=== PATIENT | male | born 1950 | race Caucasian/White ===

== ENCOUNTER 2020-11-25 10:33 | Outpatient (CLI) | payer OTHER, SELFPAY ==
--- NOTE | ~2020-11-25 | XR_ITS ---
EXAMINATION: XR foot RT standing 2V EXAM DATE: 11/25/2020 11:10 INDICATION: M05.79 - Rheumatoid arthritis with rheumatoid factor of multiple sites without organ or s ystems involvement . TECHNIQUE: Frontal and lateral projections of the right foot standing. Correlation is made to contra lateral foot same date. FINDINGS: There is moderate right pes planus. Calcaneus has small posterior and inferior spurs. Ther e is moderate polyarticular right midfoot primary osteoarthritis. There are no acute fractures or dis locations identified. There is no subcutaneous gas. The soft tissue is unremarkable. There are no radiopaque foreign bodies. IMPRESSION: 1. Right mid foot moderate polyarticular osteoarthritis. 2. Small calcaneal spurs. 3. Pes planus. 4. No erosions. Reviewed, dictated and finalized at location A. PERSON
--- NOTE | ~2020-11-25 | XR_ITS ---
EXAMINATION: XR foot LT standing 2V EXAM DATE: 11/25/2020 11:10 INDICATION: M05.79 - Rheumatoid arthritis with rheumatoid factor of multiple sites without organ or s ystems involvement . TECHNIQUE: Frontal and lateral projections of the left foot standing. There is no prior study for c omparison. FINDINGS: Left calcaneal small posterior and inferior spurs. There is moderate pes planus. There are no bony erosions identified. There is mild to moderate polyarticular midfoot primary osteoarthritis. There are no acute fractures or dislocations identified. There is no subcutaneous gas. The soft ti ssue is unremarkable. There are no radiopaque foreign bodies. IMPRESSION: 1. Mild to moderate left foot polyarticular osteoarthritis. 2. Small calcaneal spurs. 3. Pes planus. 4. No erosions. Reviewed, dictated and finalized at location A. NEERING COORDINATOR
--- NOTE | ~2020-11-25 | XR_ITS ---
EXAMINATION: HAND-MICHAEL ARTHRITIS 3+VIEWS DATE: 11/25/2020 11:10 INDICATION: Unspecified osteoarthritis at unspecified site the bilateral hands. TECHNIQUE: Posteroanterior, lateral, and oblique views of the left and of the right hands as well as a ballcatchers view of both hands were obtained. COMPARISON: None. FINDINGS: Bone alignment is normal. No fracture. Polyarticular osteoarthritis in the bilateral hands and wrists characterized by nonuniform joint space narrowing with marginal osteophytes. This is severe at the b ilateral first carpal metacarpal joints where there are also associated subarticular cystic changes. Moderate severity osteoarthritis at the left second and third and right third and fourth metacarpopha langeal joints and at several of the bilateral distal interphalangeal joints. Mild osteoarthritis at the bilateral wrist, triscaphe and remaining metacarpophalangeal and interphalangeal joints. There ar e several scattered ossicles at the peripheral aspects of a few bilateral metacarpophalangeal and int erphalangeal joints which could represent either degenerative loose bodies or heterotopic ossificatio n along the collateral ligaments. Atherosclerotic calcifications along the bilateral radial and ulnar arteries. IMPRESSION: 1. Polyarticular osteoarthritis at the bilateral hands and wrists, severe at the first carpal metacar pal joints and mild to moderate severity at numerous additional joints. Reviewed, dictated and finalized at location B. MACIST ASSISTANT IMPRESSION: 1. Polyarticular osteoarthritis at the bilateral hands and wrists, severe at th e first carpal metacarpal joints and mild to moderate severity at numerous karl tional joints.
[2020-11-25 11:11] LABS: Hemoglobin 10.5 g/dL (14.0-18.0); Mean Corpuscular HGB Conc 30.9 g/dl (32-36); Mean Corpuscular Hemoglobin 29.7 pg (26-34); Mean Corpuscular Volume 96.3 fl (80-100); Mean Platelet Volume 9.9 fl (7.4-10.4); Platelet Count Result 290 k/mm3 (150-375); Red Blood Count 3.53 M/mm3 (4.6-6.20); Red Cell Distribution Width 17.6 % (11.5-14.5); White Blood Count 4.9 K/mm3 (4.5-10.0)
[2020-11-25 11:23] LABS: Alanine Aminotransferase 18 U/L (4-50); Albumin Level 4.2 g/dL (3.5-5.1); Alkaline Phosphatase 88 U/L (38-126); Anion Gap 9 mmol/L (8-16); Aspartate Amino Transferase 28 U/L (17-59); Bilirubin,Total 0.4 mg/dL (0.2-1.3); Blood Urea Nitrogen 21 mg/dL (9-20); CRP < 0.5 mg/dL (<1.0); Calcium 9.8 mg/dL (8.4-10.2); Carbon Dioxide 26 mmol/L (22-30); Chloride 103 mmol/L (98-107); Estimated Glomerular Filt Rate > 60; Glucose 218 mg/dL (75-110); Potassium 4.5 mmol/L (3.4-5.0); Sodium 138 mmol/L (137-145)
[2020-11-25 12:06] LABS: Erythrocyte Sedimentation Rate 51 mm/hr (0-20)
[2020-11-25 12:11] LABS: Hepatitis B Surface Antigen Negative (Negative)
[2020-11-25 12:11] LABS: Add Urine Microscopic? NO; Appearance Urine Clear (Clear); Bilirubin Urine Negative (Negative); Blood Urine Negative (Negative); Color Urine Yellow (Yellow); Glucose Urine UA Negative (Negative); Ketones Urine Negative (Negative); Leukocyte Esterase Ur Negative LEU/UL (Negative); Nitrate Urine Negative (Negative); Protein Urine Negative (Negative); Specific Grav Ur 1.018 (1.001-1.035); Urobilinogen Urine Negative mg/dL (<2.0)
[2020-11-25 12:28] LABS: Hepatitis B Surface Anti Res Negative; Hepatitis C Virus Antibody Negative (Negative)
[2020-11-27 21:35] LABS: Quantiferon TB Plus, 1T NEGATIVE (NEGATIVE); TB1-NIL <0.00 IU/mL; TB2-NIL <0.00 IU/mL
== END 2020-11-25 10:34 | disposition home or self-care (01) ==
PROVIDERS: PCP Internal Medicine; Visit Provider Internal Medicine
DX: Z11.59 Encounter for screening for other viral diseases (principal); Z51.81 Encounter for therapeutic drug level monitoring; Z79.899 Other long term (current) drug therapy; M05.79 Rheumatoid arthritis with rheumatoid factor of multiple sites without organ or systems involvement; M19.042 Primary osteoarthritis, left hand; M19.041 Primary osteoarthritis, right hand; M19.032 Primary osteoarthritis, left wrist; M19.031 Primary osteoarthritis, right wrist
CPT/HCPCS: 36415; 73130; 73620; 80053; 81003; 85027; 85652; 86140; 86480; 86706; 86803; 87340

== ENCOUNTER 2021-02-05 15:41 | Outpatient (CLI) | payer OTHER, SELFPAY ==
[2021-02-05 16:10] LABS: Hematocrit 31.5 % (42.0-52.0); Hemoglobin 9.7 g/dL (14.0-18.0); Mean Corpuscular HGB Conc 30.8 g/dl (32-36); Mean Corpuscular Hemoglobin 27.6 pg (26-34); Mean Corpuscular Volume 89.7 fl (80-100); Mean Platelet Volume 10.5 fl (7.4-10.4); Platelet Count Result 267 k/mm3 (150-375); Red Blood Count 3.51 M/mm3 (4.6-6.20); Red Cell Distribution Width 18.2 % (11.5-14.5); White Blood Count 5.2 K/mm3 (4.5-10.0)
[2021-02-05 16:22] LABS: Rheumatoid Factor < 8.6 IU/ML (<12)
[2021-02-05 16:24] LABS: Alanine Aminotransferase 22 U/L (4-50); Albumin Level 3.8 g/dL (3.5-5.1); Alkaline Phosphatase 82 U/L (38-126); Anion Gap 7 mmol/L (8-16); Aspartate Amino Transferase 41 U/L (17-59); Bilirubin,Total 0.4 mg/dL (0.2-1.3); Blood Urea Nitrogen 20 mg/dL (9-20); CRP 0.6 mg/dL (<1.0); Calcium 9.7 mg/dL (8.4-10.2); Carbon Dioxide 26 mmol/L (22-30); Chloride 104 mmol/L (98-107); Estimated Glomerular Filt Rate > 60; Glucose 273 mg/dL (75-110); Potassium 4.1 mmol/L (3.4-5.0); Sodium 137 mmol/L (137-145)
[2021-02-05 17:04] LABS: Erythrocyte Sedimentation Rate 57 mm/hr (0-20)
[2021-02-09 14:26] LABS: Anti Cyclic Citrullinated Pept >250 Units (<20)
== END 2021-02-05 15:42 | disposition home or self-care (01) ==
PROVIDERS: PCP Internal Medicine; Visit Provider Internal Medicine
DX: M19.90 Unspecified osteoarthritis, unspecified site (principal); M05.79 Rheumatoid arthritis with rheumatoid factor of multiple sites without organ or systems involvement
CPT/HCPCS: 36415; 80053; 85027; 85652; 86038; 86039; 86140; 86200; 86430

== ENCOUNTER 2021-04-16 00:57 | Day surgery (SDC) | payer OTHER, SELFPAY ==
[2021-04-02 14:02] VITALS: BMI 36.5
[2021-04-16 09:28] VITALS: BP 150/70; PULSE 108; RESP 18; TEMP 36.3; O2SAT 96
[2021-04-16] MEDS: LACTATED RINGERS 1,000 ML 150 ML IV CONT (09:45)
--- NOTE | 2021-04-16 09:48 | WPDANESEPPF ---
Anes - Initial Pre Proc Eval Procedure: Operation Date: 04/16/21 10:45 Proposed Procedures p Esophagogastroduodenoscopy & Colonoscopy - Desmond Patrick MD Date/Time: 04/16/21 09:48 Surgeon: Desmond Patrick MD Pre Op Diagnosis: Iron Deficiency Anemia Patient Data Age: 70 Gender: M Height: 1.75 m Weight: 108.6 kg Last Vital Signs Temp 36.3 C L 04/16/21 09:28 Pulse 108 H 04/16/21 09:28 Resp 18 04/16/21 09:28 BP 150/70 H 04/16/21 09:28 Pulse Ox 96 04/16/21 09:28 Allergies Allergy/AdvReac Type Severity Reaction Status Date / Time indomethacin Allergy Mild Rash, Verified 04/16/21 09:26 Fainting Home Medications Medication Instructions Recorded Confirmed Type alfuzosin 10 mg tablet,extended 10 mg PO DAILY 09/02/20 04/16/21 History release 24 hr allopurinol 300 mg tablet 300 mg PO DAILY 09/02/20 04/16/21 History aspirin 325 mg tablet 325 mg PO DAILY 09/02/20 04/16/21 History atorvastatin 40 mg tablet 40 mg PO DAILY 09/02/20 04/16/21 History cinnamon bark 500 mg capsule 500 mg PO DAILY 09/02/20 04/16/21 History dutasteride 0.5 mg capsule 0.5 mg PO DAILY 09/02/20 04/16/21 History ezetimibe 10 mg-simvastatin 20 mg 1 tablet PO DAILY 09/02/20 04/16/21 History tablet garlic 1,000 mg capsule 1,000 mg PO DAILY 09/02/20 04/16/21 History glimepiride 4 mg tablet 4 mg PO QAM 09/02/20 04/16/21 History lisinopril 10 mg tablet 10 mg PO DAILY 09/02/20 04/16/21 History metformin 1,000 mg tablet 1,000 mg PO BID 09/02/20 04/16/21 History omega-3 fatty acids 1,000 mg 1,000 mg PO DAILY 09/02/20 04/16/21 History capsule pioglitazone 30 mg tablet 30 mg PO DAILY 09/02/20 04/16/21 History dutasteride 0.5 mg capsule 0.5 mg PO DAILY 10/22/20 04/16/21 History folic acid 1 mg tablet 1 mg PO DAILY #90 tablet 10/22/20 04/16/21 Rx celecoxib 200 mg capsule 200 mg PO DAILY #90 cap 12/15/20 04/16/21 Rx hydroxychloroquine 200 mg tablet 400 mg PO DAILY #60 tablet 02/13/21 04/16/21 Rx prednisone 1 mg tablet 5 mg PO DAILY #30 tablet 02/13/21 04/16/21 Rx leflunomide [Arava] 20 mg PO DAILY 04/02/21 04/16/21 History Patient hx anesthesia problems: none Family hx anesthesia problems: none [facility] Past Medical History Medical History Carpal tunnel syndrome of left wrist Carpal tunnel syndrome of right wrist Colonoscopy planned Diabetes Hypertension Lumbosacral spondylosis without myelopathy Obesity (BMI 30-39.9) Rheumatoid arthritis Rheumatoid arthritis with rheumatoid factor of multiple sites without organ or systems involvement Rotator cuff arthropathy of left shoulder Rotator cuff arthropathy of right shoulder Stroke Surgical History Surgical History H/O arthroscopy H/O cystoscopy History of back surgery History of lithotripsy Family History Family History Mother Diabetes mellitus Rheumatoid arthritis Father Heart attack Sibling Diabetes mellitus Brother Sibling Cancer sister Social History Social History Smoking status: Former smoker Tobacco type: cigarettes Alcohol intake: current Drinks per week: 1 Alcohol use details: socially Substance use: never Substance use type: does not use Living arrangements: with family Gender identity (if verbalized by the patient): Male Anes - Eval Final PreProcedure Day of Procedure 04/16/21 09:48 Patient weight: obese Heart: regular rate and rhythm Lungs: clear to auscultation Airway: Mallampati scale class II Neurological: alert and oriented Last oral intake: >/= 8 hours ASA classification: III Emergent: no Anesthetic plan: proceed Anesthesia type and monitoring: general GIVS and standard monitoring Informed Consent: The patient's anesthetic plan and its attendant risks and benefits were di
[2021-04-16 09:49] LABS: Glucose Point of Care 100 mg/dl (65-105)
--- NOTE | 2021-04-16 09:54 | WPDGICN ---
Assessment and Plan Assessment and plan (1) Rheumatoid arthritis with rheumatoid factor of multiple sites without organ or systems involvement: Code(s): M05.79 - Rheumatoid arthritis with rheumatoid factor of multiple sites without organ or systems involvement Status: Acute (2) Anemia: Code(s): D64.9 - Anemia, unspecified Status: Acute Assessment and Plan: patient with anemia. Normochromic normocytic indices noted at our institution. Patient is reported to have iron deficiency and has been on oral iron replacement. Plan is for both colonoscopy an EGD to assess for potential GI etiology to anemia. It is possible anemia is related to his rheumatoid arthritis or other chronic disease. (3) Encounter for screening colonoscopy: Code(s): Z12.11 - Encounter for screening for malignant neoplasm of colon Status: Acute Assessment and Plan: Patient presents for screening colonoscopy also to evaluate for iron deficiency. (4) Obesity (BMI 30-39.9): Code(s): E66.9 - Obesity, unspecified Status: Acute GI Consult Note Consult date/time: 04/16/21 09:54 HPI: Macario Nayak is a 70 year old male Presents for GI endoscopy to evaluate anemia. Patient has a longstanding history of rheumatoid arthritis. He has received biologic infusion therapy for some time. Recently changed able bodied seaman. Upon presenting for infusion therapy alert routine lab tests revealed profound anemia. Patient reports that low iron was identified by primary care period and patient was placed on oral iron replacement. Only after starting oral iron did he notice that his stools became somewhat dark. Additionally patient does take Celebrex. Because of anemia patient is referred for GI endoscopy. Patient denies any obvious blood in his stools. He states no stool lab testing was performed. Patient's family history is noncontributory. There is no reported history of colon or rectal disease. He denies abdominal pain. Review of Systems Review of Systems: All systems reviewed & are unremarkable except as noted in HPI and below PMFSH Past Medical History Medical History Carpal tunnel syndrome of left wrist Carpal tunnel syndrome of right wrist Colonoscopy planned Diabetes Hypertension Lumbosacral spondylosis without myelopathy Obesity (BMI 30-39.9) Rheumatoid arthritis Rheumatoid arthritis with rheumatoid factor of multiple sites without organ or systems involvement Rotator cuff arthropathy of left shoulder Rotator cuff arthropathy of right shoulder Stroke Surgical History Surgical History H/O arthroscopy H/O cystoscopy History of back surgery History of lithotripsy Family History Family History Mother Diabetes mellitus Rheumatoid arthritis Father Heart attack Sibling Diabetes mellitus Brother Sibling Cancer sister Social History Social History Smoking status: Former smoker Tobacco type: cigarettes Alcohol intake: current Drinks per week: 1 Alcohol use details: socially Substance use: never Substance use type: does not use Living arrangements: with family Gender identity (if verbalized by the patient): Male Meds Home Medications and Allergies Home Medications Medication Instructions Recorded Confirmed Type alfuzosin 10 mg tablet,extended 10 mg PO DAILY 09/02/20 04/16/21 History release 24 hr allopurinol 300 mg tablet 300 mg PO DAILY 09/02/20 04/16/21 History aspirin 325 mg tablet 325 mg PO DAILY 09/02/20 04/16/21 History atorvastatin 40 mg tablet 40 mg PO DAILY 09/02/20 04/16/21 History cinnamon bark 500 mg capsule 500 mg PO DAILY 09/02/20 04/16/21 History dutasteride 0.5 mg capsule 0.5 mg PO DAILY 09/02/20
[2021-04-16] MEDS: SIMETHICONE ORAL SUSPENSION 20 MG/0.3 ML 30 ML BOTTLE 0.6 ML IRRIGATION (10:51)
[2021-04-16 11:05] VITALS: BP 99/63; PULSE 89; RESP 15; O2SAT 95
[2021-04-16 11:15] VITALS: BP 114/82; PULSE 62; RESP 18; O2SAT 94
[2021-04-16 11:25] VITALS: BP 132/75; PULSE 63; RESP 26; O2SAT 100
== END 2021-04-16 11:41 | disposition home or self-care (01) ==
PROVIDERS: PCP Internal Medicine; Visit Provider Internal Medicine Gastroenterology
PROC: 0DJ08ZZ Inspection of Upper Intestinal Tract, Via Natural or Artificial Opening Endoscopic (ICD-10-PCS; CPT 43235; principal; 2021-04-16 10:45)
DX: D50.9 Iron deficiency anemia, unspecified (principal); D12.3 Benign neoplasm of transverse colon; K63.5 Polyp of colon; K57.30 Diverticulosis of large intestine without perforation or abscess without bleeding; K64.8 Other hemorrhoids; M05.79 Rheumatoid arthritis with rheumatoid factor of multiple sites without organ or systems involvement; E66.9 Obesity, unspecified; Z68.35 Body mass index [BMI] 35.0-35.9, adult; I10 Essential (primary) hypertension; E11.9 Type 2 diabetes mellitus without complications; M47.897 Other spondylosis, lumbosacral region; Z87.891 Personal history of nicotine dependence; Z79.82 Long term (current) use of aspirin; Z79.84 Long term (current) use of oral hypoglycemic drugs; Z79.52 Long term (current) use of systemic steroids
CPT/HCPCS: 45385; 43239; 82948; 87081; 88305; J2704; J7120